=== PATIENT | female | born 1955 | race Caucasian/White ===

== ENCOUNTER 2018-10-20 14:35 | Emergency (ER) | payer OTHER ==
[2018-10-20 14:42] VITALS: BP 109/66; PULSE 58; TEMP 98.7; BMI 30.4
[2018-10-20] MEDS ORDERED: ACETAMINOPHEN 500 MG TABLET (FP) PO ONE (14:42)
--- NOTE | 2018-10-20 14:42 | PDOC ---
Rapid Medical Evaluation Time Seen by Provider: 10/20/18 14:39 Medical Evaluation: Allergies Allergy/AdvReac Type Severity Reaction Status Date / Time No Known Allergies Allergy Verified 01/17/13 09:31 10/20/18 14:39 I have performed a brief in-person evaluation of this patient. The patient presents with a chief complaint of: slipped and fell in the bathtub. Denies dizziness or chest pain prior to fall. Pertinent physical exam findings: Lungs CTAB. TTP over 4th and 5th anterior ribs. No flail chest. I have ordered the following: left rib and chest xray, ice, tylenol The patient will proceed to the ED for further evaluation. 10/20/18 14:41 Discharge Disposition - Diagnosis Rib pain on left side - Referrals - Patient Instructions - Post Discharge Activity
[2018-10-20] MEDS ORDERED: ACETAMINOPHEN 500 MG TABLET (FP) ONE (15:14)
--- NOTE | 2018-10-20 15:14 | PDOC ---
History of Present Illness - General Chief Complaint: Injury Stated Complaint: SLIP AND FALL Time Seen by Provider: 10/20/18 14:39 - History of Present Illness Initial Comments: 10/20/18 15:08 CHIEF COMPLAINT: left rib pain HISTORY OF PRESENT ILLNESS: 63 yo F presents to [facility] with pain to left rib s/p fall. Son reports that the patient slipped and fell in the bath tub and hit her left chest on the side of the tub. Patient and son deny and trauma to head or any other part of the body, deny LOC. Patient c/o of tenderness to left lower ribs and discomfort with inspiration. No recent travel or sick contacts. PAST MEDICAL HISTORY: Denies past medical history FAMILY HISTORY: Denies SOCIAL HISTORY: Denies tobacco, alcohol, illicit drug use. SURGICAL HISTORY: Denies ALLERGIES: No known drug allergies REVIEW OF SYSTEMS General/Constitutional: Denies fever or chills. Denies weakness, weight change. HEENT: Denies change in vision. Denies ear pain or discharge. Denies sore throat. Cardiovascular: Denies chest pain or shortness of breath. Respiratory: Denies cough, wheezing, or hemoptysis. Gastrointestinal: Denies nausea, vomiting, diarrhea or constipation. Denies rectal bleeding. Genitourinary: Denies dysuria, frequency, or change in urination. Musculoskeletal: Pain to left lower rib s/p fall. Denies neck or back pain. Skin and breasts: Denies rash or easy bruising. Neurologic: Denies headache, vertigo, loss of consciousness, or loss of sensation. PHYSICAL EXAM General Appearance: Well-appearing, appropriately dressed. No apparent distress , no intoxication. HEENT: EOMI, PERRLA, normal ENT inspection, normal voice, TMs normal, pharynx normal. No conjunctival pallor. No photophobia, scleral icterus. Neck: Supple. Trachea midline. No tenderness, rigidity, carotid bruit, stridor , lymphadenopathy, or thyromegaly. Respiratory/Chest: Lungs CTAB. No shortness of breath, chest tenderness, respiratory distress, accessory muscle use. No crackles, rales, rhonchi, stridor , wheezing, dullness Cardiovascular: RRR. S1, S2. No JVD, murmur, bradycardia, tachycardia. Vascular Pulses: Dorsalis-Pedis (R): 2+, Dorsalis-Pedis (L): 2+ Gastrointestinal/Abdominal: Normal bowel sounds. Abdomen soft, non-distended. No tenderness or rebound tenderness. No organomegaly, pulsatile mass, guarding , hernia, hepatomegaly, splenomegaly. Lymphatic: No adenopathy, tenderness. Musculoskeletal/Extremities: Tenderness to L chest wall over left lateral 4th and 5th ribs. FROM of all extremities, normal capillary refill. Pelvis Stable. No CVA tenderness. No tenderness to extremities, pedal edema, swelling, erythema or deformity. Integumentary: Appropriate color, dry, warm. No cyanosis, erythema, jaundice or rash Neurologic: charter representative II-XII intact. Fully oriented, alert. Appropriate mood/affect. Motor strength 5/5. No appreciable EOM palsy, facial droop or sensory deficit. 10/20/18 15:19 Past History - Past Medical History Allergies/Adverse Reactions: Allergies Allergy/AdvReac Type Severity Reaction Status Date / Time No Known Allergies Allergy Verified 10/20/18 14:43 Home Medications: Ambulatory Orders Aspirin [ASA -] 325 mg PO DAILY 07/19/17 Atorvastatin Ca [Lipitor] 10 mg PO DAILY 07/19/17 Cholecalciferol (Vitamin D3) [Vitamin D3] 5,000 unit PO DAILY 07/19/17 Duloxetine HCl [Cymbalta -] 60 mg PO DAILY 07/19/17 Ferrous Sulfate [Iron] 325 mg PO DAILY 07/19/17 Nadolol 40 mg PO BID 07/19/17 Nifedipine [Nifedipine ER] 60 mg PO DAILY 07/19/17 Teriflunomide [Aubagio] 14 mg PO DAILY 07/19/17 Vitamin B Complex Vit C No.4 [Super B Complex] 1 tab PO DAILY 07/19/17 Amox-Tr/K Cl [Augmentin - 500Mg Tablet] 1 tab PO BID #14 tab 12/08/17 Anemia: Yes Asthma: No Cancer: No Cardiac Disorders: Yes (PALPITATION?) CVA: No COPD: No CHF: No Dementia: No Diabetes: Yes (DIET CONTROLLED) GI Disorders: Yes (BLOATING, ABD. PAIN) Disorders: No HTN: Yes Hypercholesterolemia: No Liver Disease: No Seizures: No Thyroid Disease: No Other medical history: ms - Surgical History Abdominal Surgery: No Appendectomy: No Cardiac Surgery: (CARDIAC CATHETERIZATION) Cholecystectomy: No Lung Surgery: No Neurologic Surgery: No Orthopedic Surgery: Yes (LOW BACK SURGERY) - Suicide/Smoking/Psychosocial Hx Smoking History: Never smoked Have you smoked in the past 12 months: No Information on smoking cessation initiated: No Hx Alcohol Use: No Drug/Substance Use Hx: No Substance Use Type: None *Physical Exam - Vital Signs Last Vital Signs Temp Pulse Resp BP Pulse Ox 98.7 F 58 L 19 109/66 97 10/20/18 14:40 10/20/18 14:40 10/20/18 14:40 10/20/18 14:40 10/20/18 14:40 Medical Decision Making - Medical Decision Making 10/20/18 15:22 63 yo F presents to [facility] with pain to left rib s/p fall. -rib xray -tylenol x-ray negative for fracture. nsaids, f/u with pcp Advised patient to take medication as prescribed and follow up with PCP within the next week. Advised patient of signs and symptoms for return to ED. Patient verbalized understanding and agrees to plan. *DC/Admit/Observation/Transfer Diagnosis at time of Disposition: Rib pain on left side - Discharge Dispostion Disposition: HOME Condition at time of disposition: Stable Decision to Admit order: No - Referrals Referrals: Roni Wolf MD [Primary Care Provider] - - Patient Instructions Printed Discharge Instructions: DI for Rib Contusion - Post Discharge Activity
== END 2018-10-20 16:29 | disposition home or self-care (01) ==
LOC: JERFT 14:35
DX: S29.8XXA Other specified injuries of thorax, initial encounter (principal); R07.81 Pleurodynia; W18.2XXA Fall in (into) shower or empty bathtub, initial encounter; Y93.E1 Activity, personal bathing and showering; Y92.012 Bathroom of single-family (private) house as the place of occurrence of the external cause; Y99.8 Other external cause status; I10 Essential (primary) hypertension; E11.9 Type 2 diabetes mellitus without complications; D64.9 Anemia, unspecified
CPT/HCPCS: 71046-TC-FY; 71101-TC-LT-FY; 99281-25

== ENCOUNTER 2020-05-30 07:57 | Day surgery (SDC) | payer OTHER ==
[2020-05-30] MEDS ORDERED: FERRIC CARBOXYMALTOSE 750 MG in SODIUM CHLORIDE 250 ML IVPB ONE (11:41)
[2020-05-30 18:28] VITALS: TEMP 98.6
[2020-05-30 18:29] VITALS: BP 131/71; PULSE 53
[2020-06-06] MEDS ORDERED: FERRIC CARBOXYMALTOSE 750 MG in SODIUM CHLORIDE 250 ML IVPB ONE (10:14)
== END 2020-05-30 13:00 | disposition home or self-care (01) ==
LOC: JONCNONCHE 07:57
PROVIDERS: ATTEND Internal Medicine Hematology & Oncology
PROC: 3E033GC Introduction of Other Therapeutic Substance into Peripheral Vein, Percutaneous Approach (ICD-10-PCS; principal; 2020-05-30)
DX: D50.9 Iron deficiency anemia, unspecified (principal)
CPT/HCPCS: 96365; J1439

== ENCOUNTER 2020-06-07 07:14 | Day surgery (SDC) | payer OTHER ==
[~2020-06-07 07:14] MED LIST: FERRIC CARBOXYMALTOSE 750 MG in SODIUM CHLORIDE 250 ML IVPB ONE
[2020-06-07] MEDS ORDERED: FERRIC CARBOXYMALTOSE 750 MG/15 ML VIAL IVPB ONE (11:50)
[2020-06-07] MEDS ORDERED: FERRIC CARBOXYMALTOSE 750 MG in SODIUM CHLORIDE 250 ML IVPB ONE (12:00)
[2020-06-07 15:37] VITALS: PULSE 52; TEMP 98.7
[2020-06-07 15:39] VITALS: BP 119/60
== END 2020-06-07 14:44 | disposition home or self-care (01) ==
LOC: JONCNONCHE 07:14
PROVIDERS: ATTEND Internal Medicine Hematology & Oncology
PROC: 3E033GC Introduction of Other Therapeutic Substance into Peripheral Vein, Percutaneous Approach (ICD-10-PCS; principal; 2020-06-07)
DX: D50.9 Iron deficiency anemia, unspecified (principal)
CPT/HCPCS: 96365; J1439

== ENCOUNTER 2020-12-07 21:14 | Inpatient (IN) | payer OTHER ==
[2020-12-07] MEDS ORDERED: FAMOTIDINE 20 MG/50 ML IVPB 20 MG/50 ML MG IVPB ONE ×2 (21:52→21:59)
[2020-12-07] MEDS ORDERED: ONDANSETRON 4 MG/2 ML VIAL IVPUSH ONE (21:52)
[2020-12-07] MEDS ORDERED: LIDOCAINE VISCOUS 2% ORAL/TOP 15 ML UNIT-DOSE CUP MM ONE (21:53)
[2020-12-07] MEDS ORDERED: MAG HYDROX/AL HYDROX/SIMETH -MYLANTA- ORAL SUSPENSION PO ONE (21:53)
[2020-12-07] MEDS ORDERED: ACETAMINOPHEN 1000 MG/100 ML VIAL IVPB ONE (21:57)
[2020-12-07] MEDS ORDERED: LIDOCAINE VISCOUS 2% ORAL/TOP 15 ML UNIT-DOSE CUP ONE (21:58)
[2020-12-07] MEDS ORDERED: ONDANSETRON 4 MG/2 ML VIAL ONE (21:58)
[2020-12-07] MEDS ORDERED: MAG HYDROX/AL HYDROX/SIMETH 30 ML UNIT-DOSE CUP ONE (21:58)
[2020-12-07] MEDS ORDERED: ACETAMINOPHEN INJECTION 100 ML IVPB ONE (22:48)
[2020-12-07 22:50] LABS: BASO % 0.8 % (0-2.0); EOS % 1.8 % (0-4.5); HEMATOCRIT 33.2 % (32.4-45.2); HEMOGLOBIN 11.1 GM/dL (10.7-15.3); LYMPH % 23.4 % (8-40); MCH 22.1 pg (25.7-33.7); MCHC 33.6 g/dl (32.0-36.0); MEAN CELL VOLUME 65.8 fl (80-96); MEAN PLT VOLUME 8.9 fl (7.5-11.1); PLATELET COUNT 290 10^3/uL (134-434); RBC 5.04 M/mm3 (3.60-5.2); RDW 14.7 % (11.6-15.6); WHITE BLOOD COUNT 8.4 K/mm3 (4.0-10.0)
[2020-12-07 22:58] LABS: INR 1.03 (0.83-1.09); PROTHROMBIN TIME (PATIENT) 11.5 SEC (9.7-13.0)
[2020-12-07 23:01] LABS: ACTIVATED PTT 28.6 SECONDS (25.2-36.5)
[2020-12-07 23:23] LABS: CHLORIDE 79 mmol/L (98-107)
[2020-12-07 23:25] LABS: ALBUMIN 3.9 g/dl (3.4-5.0); BLOOD UREA NITROGEN 9.6 mg/dL (7-18); CALCIUM 9.3 mg/dL (8.5-10.1); CO2 29 mmol/L (21-32); LIPASE 371 U/L (73-393)
[2020-12-07 23:26] LABS: GLUCOSE,RANDOM 142 mg/dL (74-106)
[2020-12-07 23:28] LABS: CREATININE 0.9 mg/dL (0.55-1.3); SGOT/AST 27 U/L (15-37); SGPT/ALT 24 U/L (13-61)
[2020-12-07 23:30] LABS: BILIRUBIN,TOTAL 1.2 mg/dL (0.2-1); TOT PROT 7.4 g/dl (6.4-8.2)
[2020-12-07 23:31] LABS: ALK PHOS 71 U/L (45-117)
[2020-12-07 23:56] LABS: ANION GAP 11 MMOL/L (8-16); SODIUM 118 mmol/L (136-145)
[2020-12-08] MEDS ORDERED: POTASSIUM CHLORIDE ORAL LIQUID 20 MEQ/15 ML PO ONE ×2 (00:21→00:34)
[2020-12-08] MEDS ORDERED: SODIUM CHLORIDE 1,000 ML IV SCH ×2 (00:45→03:00)
[2020-12-08 01:18] LABS: EPI CELLS 6 /uL (0-25.1); HYALINE CASTS 0 /uL (0-3.1); PH,URINE 7.5 (5.0-8.0); URINE APPEARANCE CLEAR; URINE BACTERIA 77 /uL (0-1359); URINE BILIRUBIN NEGATIVE (NEGATIVE); URINE COLOR YELLOW; URINE GLUCOSE (UA) NEGATIVE (NEGATIVE); URINE KETONE NEGATIVE (NEGATIVE); URINE LEUK ESTERASE 1+ (NEGATIVE); URINE NITRITE NEGATIVE (NEGATIVE); URINE PROTEIN 2+ (NEGATIVE); URINE RBC 6 /uL (0-23.9); URINE UROBILINOGEN 0.2 mg/dL (0.2-1.0); URINE WBC 10 /uL (0-25.8)
[2020-12-08] MEDS ORDERED: POTASSIUM CHLORIDE ORAL LIQUID 20 MEQ/15 ML ONE (01:30)
[2020-12-08] MEDS ORDERED: KCL 10 MEQ IVPB 10 MEQ/100 ML INFUS.BAG IVPB ONE ×4 (01:30→12:29)
[2020-12-08 01:49] LABS: MAGNESIUM 1.3 mg/dL (1.8-2.4)
[2020-12-08] MEDS: KCL 10 MEQ IVPB 10 MEQ/100 ML INFUS.BAG IVPB SCH ×3 (01:52→06:12)
[2020-12-08 01:53] LABS: PHOSPHOROUS 2.6 mg/dL (2.5-4.9)
[2020-12-08 01:57] LABS: N-TERMINAL BNP 781.4 pg/ml (5-125)
[2020-12-08] MEDS ORDERED: PIPERACILLIN/TAZOB 4.5 GM 4.5 GM in DEXTROSE 5%-WATER 100 ML IVPB ONE (02:52)
[2020-12-08] MEDS ORDERED: MAGNESIUM SULF 50% (8.12 MEQ/2 ML-1 GM VIAL) IVPB ONE (03:40)
[2020-12-08] MEDS ORDERED: MAGNESIUM SULFATE IN WATER 2 GM/50 ML IVPB IVPB ONE (03:41)
[2020-12-08] MEDS ORDERED: PANTOPRAZOLE SODIUM 40 MG VIAL IVPUSH ONE (05:18)
[2020-12-08 06:24] LABS: BLOOD UREA NITROGEN 7.6 mg/dL (7-18); CALCIUM 8.8 mg/dL (8.5-10.1)
[2020-12-08 06:25] LABS: ALBUMIN 3.7 g/dl (3.4-5.0); MAGNESIUM 2.3 mg/dL (1.8-2.4)
[2020-12-08 06:27] LABS: CREATININE 0.9 mg/dL (0.55-1.3)
[2020-12-08 06:29] LABS: TOT PROT 6.9 g/dl (6.4-8.2)
[2020-12-08 07:07] LABS: BASO % 0.9 % (0-2.0); EOS % 0.6 % (0-4.5); HEMATOCRIT 33.7 % (32.4-45.2); HEMOGLOBIN 11.1 GM/dL (10.7-15.3); LYMPH % 27.2 % (8-40); MCH 22.3 pg (25.7-33.7); MEAN CELL VOLUME 67.7 fl (80-96); MEAN PLT VOLUME 9.5 fl (7.5-11.1); MONO % 9.4 % (3.8-10.2); NEUT % 61.9 % (42.8-82.8); PLATELET COUNT 268 10^3/uL (134-434); RBC 4.97 M/mm3 (3.60-5.2); RDW 15.4 % (11.6-15.6); WHITE BLOOD COUNT 5.7 K/mm3 (4.0-10.0)
[2020-12-08] MEDS ORDERED: POTASSIUM CHLORIDE TABS 20 MEQ TABLET.ER (FP) PO ONE ×2 (07:57→08:13)
[2020-12-08] MEDS ORDERED: FAMOTIDINE 20 MG/50 ML IVPB 20 MG/50 ML MG IVPB ONE (09:49)
[2020-12-08] MEDS: FAMOTIDINE 20 MG/50 ML IVPB 20 MG/50 ML MG IVPB SCH ×2 (10:01→21:58)
[2020-12-08] MEDS: DEXTROSE 5%-WATER - 1,000 ML IV SCH (12:45)
[2020-12-08] MEDS: traMADol HCL 50 MG TABLET PO SCH ×2 (14:59→21:53)
[2020-12-08 16:50] LABS: CHLORIDE 95 mmol/L (98-107); SODIUM 130 mmol/L (136-145)
[2020-12-08 16:51] LABS: CALCIUM 9.6 mg/dL (8.5-10.1)
[2020-12-08 16:52] LABS: ANION GAP 5 MMOL/L (8-16); BLOOD UREA NITROGEN 9.6 mg/dL (7-18); CO2 30 mmol/L (21-32); GLUCOSE,RANDOM 122 mg/dL (74-106)
[2020-12-08 16:55] LABS: CREATININE 1.2 mg/dL (0.55-1.3)
[2020-12-08] MEDS: ATORVASTATIN CA 10 MG TABLET (FP) PO SCH (21:53)
[2020-12-08] MEDS: AMITRIPTYLINE HCL 25 MG TABLET PO SCH (21:53)
[2020-12-08] MEDS ORDERED: NADOLOL 40 MG TABLET (FP) PO SCH (22:00)
[2020-12-09] MEDS: traMADol HCL 50 MG TABLET PO SCH ×3 (06:42→21:32)
[2020-12-09 07:17] LABS: BASO % 1.5 % (0-2.0); EOS % 1.6 % (0-4.5); HEMATOCRIT 35.5 % (32.4-45.2); HEMOGLOBIN 11.3 GM/dL (10.7-15.3); LYMPH % 33.8 % (8-40); MCH 21.6 pg (25.7-33.7); MCHC 31.9 g/dl (32.0-36.0); MEAN CELL VOLUME 67.9 fl (80-96); MEAN PLT VOLUME 10.1 fl (7.5-11.1); MONO % 11.5 % (3.8-10.2); NEUT % 51.6 % (42.8-82.8); PLATELET COUNT 266 10^3/uL (134-434); RBC 5.23 M/mm3 (3.60-5.2); RDW 15.3 % (11.6-15.6); WHITE BLOOD COUNT 6.3 K/mm3 (4.0-10.0)
[2020-12-09 07:20] LABS: CALCIUM 9.5 mg/dL (8.5-10.1)
[2020-12-09 07:21] LABS: ALBUMIN 3.4 g/dl (3.4-5.0); BLOOD UREA NITROGEN 9.8 mg/dL (7-18); MAGNESIUM 1.8 mg/dL (1.8-2.4)
[2020-12-09 07:26] LABS: BILIRUBIN,TOTAL 0.9 mg/dL (0.2-1); TOT PROT 6.5 g/dl (6.4-8.2)
[2020-12-09] MEDS ORDERED: POTASSIUM CHLORIDE ORAL LIQUID 20 MEQ/15 ML PO ONE (09:00)
[2020-12-09] MEDS ORDERED: PT OWN MED DRAWER 7, Y5N ONE ×3 (09:45→21:31)
[2020-12-09] MEDS ORDERED: HYDROCHLOROTHIAZIDE 12.5 MG CAPSULE (FP) PO SCH (10:00)
[2020-12-09] MEDS ORDERED: PATIENT'S OWN MEDICATION (NON-FORMULARY) (Telmisartan/Hydrochlorothiazid [Telmisartan-Hctz PO SCH (10:00)
[2020-12-09] MEDS: NADOLOL 40 MG TABLET (FP) PO SCH ×2 (10:09→21:32)
[2020-12-09] MEDS: LOSARTAN POTASSIUM 50 MG TABLET PO SCH (10:10)
[2020-12-09] MEDS: amLODIPine BESYLATE 5 MG TABLET (FP) PO SCH (10:10)
[2020-12-09] MEDS: FAMOTIDINE 20 MG/50 ML IVPB 20 MG/50 ML MG IVPB SCH (10:17)
[2020-12-09] MEDS: DEXTROSE 5%-WATER - 1,000 ML IV SCH (13:45)
[2020-12-09] MEDS: TERIFLUNOMIDE 7 MG PO SCH (15:13)
[2020-12-09 20:48] VITALS: BMI 26.8
[2020-12-09] MEDS: AMITRIPTYLINE HCL 25 MG TABLET PO SCH (21:32)
[2020-12-09] MEDS: ATORVASTATIN CA 10 MG TABLET (FP) PO SCH (21:32)
[2020-12-10] MEDS: traMADol HCL 50 MG TABLET PO SCH ×3 (06:30→21:06)
[2020-12-10 07:05] LABS: EOS % 1.7 % (0-4.5); HEMATOCRIT 38.8 % (32.4-45.2); HEMOGLOBIN 12.5 GM/dL (10.7-15.3); LYMPH % 36.4 % (8-40); MCHC 32.1 g/dl (32.0-36.0); MEAN CELL VOLUME 68.6 fl (80-96); MEAN PLT VOLUME 10.3 fl (7.5-11.1); MONO % 9.5 % (3.8-10.2); NEUT % 50.4 % (42.8-82.8); PLATELET COUNT 306 10^3/uL (134-434); RBC 5.66 M/mm3 (3.60-5.2); RDW 15.6 % (11.6-15.6); WHITE BLOOD COUNT 6.8 K/mm3 (4.0-10.0)
[2020-12-10 07:31] LABS: CALCIUM 9.8 mg/dL (8.5-10.1)
[2020-12-10 07:32] LABS: ALBUMIN 3.5 g/dl (3.4-5.0); BLOOD UREA NITROGEN 12.6 mg/dL (7-18)
[2020-12-10 07:37] LABS: BILIRUBIN,TOTAL 0.9 mg/dL (0.2-1); TOT PROT 6.9 g/dl (6.4-8.2)
[2020-12-10] MEDS ORDERED: NADOLOL 40 MG TABLET (FP) PO SCH (10:00)
[2020-12-10] MEDS: amLODIPine BESYLATE 5 MG TABLET (FP) PO SCH (10:08)
[2020-12-10] MEDS: LOSARTAN POTASSIUM 50 MG TABLET PO SCH (10:09)
[2020-12-10] MEDS: TERIFLUNOMIDE 7 MG PO SCH (10:10)
[2020-12-10] MEDS ORDERED: PT OWN MED DRAWER 7, Y5N ONE (20:45)
[2020-12-10] MEDS: ATORVASTATIN CA 10 MG TABLET (FP) PO SCH (21:06)
[2020-12-10] MEDS: AMITRIPTYLINE HCL 25 MG TABLET PO SCH (21:06)
[2020-12-11] MEDS: traMADol HCL 50 MG TABLET PO SCH ×3 (05:43→21:48)
[2020-12-11 07:16] LABS: BASO % 1.3 % (0-2.0); EOS % 2.3 % (0-4.5); HEMATOCRIT 35.3 % (32.4-45.2); HEMOGLOBIN 11.4 GM/dL (10.7-15.3); LYMPH % 31.1 % (8-40); MCH 22.1 pg (25.7-33.7); MCHC 32.3 g/dl (32.0-36.0); MEAN CELL VOLUME 68.5 fl (80-96); MEAN PLT VOLUME 9.6 fl (7.5-11.1); MONO % 11.3 % (3.8-10.2); PLATELET COUNT 253 10^3/uL (134-434); RBC 5.15 M/mm3 (3.60-5.2); RDW 15.8 % (11.6-15.6); WHITE BLOOD COUNT 6.8 K/mm3 (4.0-10.0)
[2020-12-11 07:45] LABS: ALBUMIN 3.2 g/dl (3.4-5.0); BLOOD UREA NITROGEN 18.7 mg/dL (7-18)
[2020-12-11 07:46] LABS: CALCIUM 9.7 mg/dL (8.5-10.1)
[2020-12-11 07:47] LABS: BILIRUBIN,TOTAL 0.6 mg/dL (0.2-1); TOT PROT 6.4 g/dl (6.4-8.2)
[2020-12-11 07:48] LABS: CREATININE 1.1 mg/dL (0.55-1.3)
[2020-12-11] MEDS ORDERED: REGADENOSON 0.4 MG/5 ML PRE-FILLED SYRINGE IVPUSH ONE ×2 (09:14→10:00)
[2020-12-11] MEDS: amLODIPine BESYLATE 5 MG TABLET (FP) PO SCH (12:00)
[2020-12-11] MEDS: LOSARTAN POTASSIUM 50 MG TABLET PO SCH (12:01)
[2020-12-11] MEDS: TERIFLUNOMIDE 7 MG PO SCH (12:08)
[2020-12-11] MEDS: ATORVASTATIN CA 10 MG TABLET (FP) PO SCH (21:48)
[2020-12-11] MEDS: AMITRIPTYLINE HCL 25 MG TABLET PO SCH (22:36)
[2020-12-12] MEDS: traMADol HCL 50 MG TABLET PO SCH ×3 (05:46→22:38)
[2020-12-12 07:02] LABS: BASO % 1.8 % (0-2.0); EOS % 3.2 % (0-4.5); HEMATOCRIT 33.6 % (32.4-45.2); LYMPH % 28.8 % (8-40); MCH 22.2 pg (25.7-33.7); MCHC 32.8 g/dl (32.0-36.0); MEAN CELL VOLUME 67.8 fl (80-96); MEAN PLT VOLUME 9.3 fl (7.5-11.1); MONO % 10.9 % (3.8-10.2); NEUT % 55.3 % (42.8-82.8); PLATELET COUNT 245 10^3/uL (134-434); RBC 4.96 M/mm3 (3.60-5.2); RDW 15.6 % (11.6-15.6); WHITE BLOOD COUNT 7.3 K/mm3 (4.0-10.0)
[2020-12-12 07:33] LABS: CALCIUM 9.5 mg/dL (8.5-10.1)
[2020-12-12 07:34] LABS: BLOOD UREA NITROGEN 21.1 mg/dL (7-18)
[2020-12-12 07:37] LABS: CREATININE 1.1 mg/dL (0.55-1.3)
[2020-12-12 07:47] LABS: PROTHROMBIN TIME (PATIENT) 11.2 SEC (9.7-13.0)
[2020-12-12] MEDS: LOSARTAN POTASSIUM 50 MG TABLET PO SCH (10:58)
[2020-12-12] MEDS: amLODIPine BESYLATE 5 MG TABLET (FP) PO SCH (10:58)
[2020-12-12] MEDS: TERIFLUNOMIDE 7 MG PO SCH (11:00)
[2020-12-12] MEDS: PANTOPRAZOLE 40 MG TABLET PO SCH (11:03)
[2020-12-12] MEDS: AMITRIPTYLINE HCL 25 MG TABLET PO SCH (22:38)
[2020-12-12] MEDS: ATORVASTATIN CA 10 MG TABLET (FP) PO SCH (22:38)
[2020-12-13 00:20] VITALS: PULSE 57; TEMP 98.1
[2020-12-13] MEDS: traMADol HCL 50 MG TABLET PO SCH (06:19)
[2020-12-13 07:56] VITALS: BP 102/67
[2020-12-13] MEDS: LOSARTAN POTASSIUM 50 MG TABLET PO SCH (09:23)
[2020-12-13] MEDS: amLODIPine BESYLATE 5 MG TABLET (FP) PO SCH (09:23)
[2020-12-13] MEDS: PANTOPRAZOLE 40 MG TABLET PO SCH (09:23)
[2020-12-13] MEDS: TERIFLUNOMIDE 7 MG PO SCH (09:24)
== END 2020-12-13 12:04 | disposition home health service (06) | DRG 641 ==
LOC: JER 21:14 → JERBED 21:53 → J4W 12-08 12:03
PROVIDERS: ADMIT Internal Medicine; ATTEND Family Medicine
PROC: 0DB68ZX Excision of Stomach, Via Natural or Artificial Opening Endoscopic, Diagnostic (ICD-10-PCS; 2020-12-12)
PROC: 0DB98ZX Excision of Duodenum, Via Natural or Artificial Opening Endoscopic, Diagnostic (ICD-10-PCS; principal; 2020-12-12 09:45)
DX: E87.1 Hypo-osmolality and hyponatremia (principal); K80.10 Calculus of gallbladder with chronic cholecystitis without obstruction; G81.94 Hemiplegia, unspecified affecting left nondominant side; K29.90 Gastroduodenitis, unspecified, without bleeding; E78.5 Hyperlipidemia, unspecified; K21.9 Gastro-esophageal reflux disease without esophagitis; I10 Essential (primary) hypertension; G35 Multiple sclerosis; N28.1 Cyst of kidney, acquired; K44.9 Diaphragmatic hernia without obstruction or gangrene; M54.9 Dorsalgia, unspecified; E87.6 Hypokalemia; E83.42 Hypomagnesemia; R10.13 Epigastric pain; F41.9 Anxiety disorder, unspecified; R00.1 Bradycardia, unspecified; R63.0 Anorexia; Z68.26 Body mass index [BMI] 26.0-26.9, adult; R07.81 Pleurodynia; E11.51 Type 2 diabetes mellitus with diabetic peripheral angiopathy without gangrene; I27.20 Pulmonary hypertension, unspecified; M51.16 Intervertebral disc disorders with radiculopathy, lumbar region; M48.061 Spinal stenosis, lumbar region without neurogenic claudication; E66.3 Overweight; R26.89 Other abnormalities of gait and mobility; R13.10 Dysphagia, unspecified
CPT/HCPCS: 36415; 71045-TC-FY; 71275-TC; 74174-TC; 76705-TC; 78452-TC; 80048; 80053; 80061; 81003; 82436; 82533; 82550; 82553; 83036; 83690; 83735; 83880; 83930; 83935; 84100; 84133; 84300; 84443; 84480; 84481; 84484; 85025; 85610; 85730; 86850; 86900; 86901; 87086; 88305-TC; 93005; 93010; 93017; 93306-TC; 93970-TC; 97116-GP; 97162-GP; 99285-25; A9502; C9803; J0131; J2785; U0003; U0005

== ENCOUNTER 2021-10-27 05:32 | Day surgery (SDC) | payer OTHER ==
[2021-10-24 16:17] VITALS: BMI 26.6
[2021-10-27 10:46] VITALS: TEMP 98
[2021-10-27 11:22] VITALS: BP 155/84; PULSE 72; RESP 17
== END 2021-10-27 11:39 | disposition home or self-care (01) ==
LOC: JASU-ENDO 05:32
PROVIDERS: ATTEND Internal Medicine Gastroenterology
PROC: 0DJD8ZZ Inspection of Lower Intestinal Tract, Via Natural or Artificial Opening Endoscopic (ICD-10-PCS; principal; 2021-10-27 09:30)
DX: Z12.11 Encounter for screening for malignant neoplasm of colon (principal); E11.9 Type 2 diabetes mellitus without complications; I10 Essential (primary) hypertension

== ENCOUNTER 2021-10-31 04:59 | Day surgery (SDC) | payer OTHER ==
[2021-10-29 14:43] VITALS: BMI 26.6
[2021-10-31] MEDS ORDERED: TRIAMCINOLONE ACET 40MG/1ML VIAL ONE (07:26)
[2021-10-31] MEDS ORDERED: BUPIVACAINE HCL 50 ML ONE (07:26)
[2021-10-31] MEDS ORDERED: LIDOCAINE HCL/PF 1% SDV 5ML VIAL ONE (07:26)
[2021-10-31] MEDS ORDERED: TRIAMCINOLONE ACET 40MG/1ML VIAL IM ONE (11:40)
[2021-10-31] MEDS ORDERED: BUPIVACAINE HCL/PF 0.5% (5MG/ML) 10 ML VIAL PNB ONE (11:40)
[2021-10-31] MEDS ORDERED: LIDOCAINE HCL 1%, 10 MG/ML (50 mL VIAL) PNB ONE (11:40)
[2021-10-31 13:11] VITALS: BP 145/72; PULSE 82; RESP 20; TEMP 97.9
== END 2021-10-31 12:55 | disposition home or self-care (01) ==
LOC: JASU-SURG 04:59
PROVIDERS: ATTEND Pain Medicine Pain Medicine
PROC: 3E0U3BZ Introduction of Anesthetic Agent into Joints, Percutaneous Approach (ICD-10-PCS; 2021-10-31)
PROC: 3E0U33Z Introduction of Anti-inflammatory into Joints, Percutaneous Approach (ICD-10-PCS; principal; 2021-10-31 11:00)
DX: M53.3 Sacrococcygeal disorders, not elsewhere classified (principal)
CPT/HCPCS: 76000-TC-FY

== ENCOUNTER 2021-12-02 04:36 | Day surgery (SDC) | payer OTHER ==
[2021-12-01 14:07] VITALS: BMI 26.6
[2021-12-02 11:08] VITALS: RESP 20
[2021-12-02] MEDS ORDERED: LIDOCAINE HCL/PF 1% SDV 5ML VIAL ONE (11:13)
[2021-12-02] MEDS ORDERED: DEXAMETHASONE SOD PHOSPHATE 10 MG/1 ML VIAL ONE (11:13)
[2021-12-02] MEDS ORDERED: SODIUM CHLORIDE 0.9% P/F 10 ML VIAL IJ ONE (11:14)
[2021-12-02] MEDS ORDERED: LIDOCAINE HCL 1% PRESERVATIVE FREE - 30ML VIAL IJ ONE (12:49)
[2021-12-02 13:20] VITALS: TEMP 98
[2021-12-02 15:38] VITALS: BP 140/78; PULSE 78
== END 2021-12-02 13:30 | disposition home or self-care (01) ==
LOC: JASU-SURG 04:36
PROVIDERS: ATTEND Pain Medicine Pain Medicine
PROC: 3E0R33Z Introduction of Anti-inflammatory into Spinal Canal, Percutaneous Approach (ICD-10-PCS; 2021-12-02)
PROC: B01BYZZ Fluoroscopy of Spinal Cord using Other Contrast (ICD-10-PCS; 2021-12-02)
PROC: 3E0R3BZ Introduction of Anesthetic Agent into Spinal Canal, Percutaneous Approach (ICD-10-PCS; principal; 2021-12-02 12:30)
DX: M54.16 Radiculopathy, lumbar region (principal)
CPT/HCPCS: 76000-TC-FY; J1100

== ENCOUNTER 2022-01-16 12:50 | Emergency (ER) | payer OTHER ==
[2022-01-16 13:11] VITALS: BP 134/70; PULSE 88; RESP 17; TEMP 99.2; BMI 25.8
== END 2022-01-16 13:21 | disposition home or self-care (01) ==
LOC: JER 12:50
DX: U07.1 COVID-19 (principal)
CPT/HCPCS: 0241U-QW; 99283-25

== ENCOUNTER 2024-09-03 18:12 | Observation (INO) | payer OTHER ==
[2024-09-03 18:23] VITALS: BMI 24.2
[2024-09-03] MEDS ORDERED: METOCLOPRAMIDE HCL INJECTION 10 MG/2 ML VIAL ONE (19:34)
[2024-09-03] MEDS: METOCLOPRAMIDE HCL INJECTION 10 MG/2 ML VIAL IVPB ONE (20:05)
[2024-09-03] MEDS: SODIUM CHLORIDE 0.9% 500 ML INFUS.BAG IV ONE (20:05)
[2024-09-03 20:28] LABS: ABSOLUTE IMMATURE GRANULOCYTES 0.02 x10^3/uL (0.0-0.031); BASOPHILS # 0.08 x10^3/uL (0.01-0.08); EOSINOPHIL % 1.4 % (0.7-5.8); EOSINOPHILS # 0.09 x10^3/uL (0.04-0.36); MCHC 29.8 g/dl (32.2-35.5); MEAN CELL VOLUME 69.9 fl (79.4-94.8); MONOCYTE # 0.73 x10^3/uL (0.24-0.86); MONOCYTE % 11.0 % (4.7-12.5); RDW 17.7 % (12.4-16.4)
[2024-09-03 20:53] LABS: GLUCOSE,RANDOM 85 mg/dL (74-106)
[2024-09-03 20:54] LABS: CO2 27 mmol/L (21-32)
[2024-09-03 20:56] LABS: CREATININE 1.2 mg/dL (0.55-1.3); SGOT/AST 23 U/L (15-37); SGPT/ALT 19 U/L (13-61)
[2024-09-03 20:58] LABS: TOT PROT 6.9 g/dl (6.4-8.2)
[2024-09-03 20:59] LABS: ALK PHOS 108 U/L (45-117)
[2024-09-03 21:01] LABS: N-TERMINAL BNP 769.6 pg/ml (5-125)
[2024-09-03 21:29] LABS: EPI CELLS 1 /uL (0-25.1); HYALINE CASTS 0 /uL (0-3.1); URINE APPEARANCE CLEAR; URINE BACTERIA 24 /uL (0-1359); URINE BILIRUBIN NEGATIVE (NEGATIVE); URINE COLOR YELLOW; URINE GLUCOSE (UA) 1+ (NEGATIVE); URINE KETONE NEGATIVE (NEGATIVE); URINE LEUK ESTERASE TRACE (NEGATIVE); URINE NITRITE NEGATIVE (NEGATIVE); URINE PROTEIN NEGATIVE (NEGATIVE); URINE RBC 7 /uL (0-23.9); URINE UROBILINOGEN 0.2 mg/dL (0.2-1.0); URINE WBC 3 /uL (0-25.8)
[2024-09-03 21:39] LABS: HIV INTERPRETATION NEGATIVE (NEGATIVE)
[2024-09-03 21:40] LABS: HCV DIAGNOSTIC IN-HOUSE W/RFLX NON-REACTIVE (NONREACTIVE)
[2024-09-03] MEDS ORDERED: ACETAMINOPHEN INJECTION 100 ML ONE (21:49)
[2024-09-03] MEDS: ACETAMINOPHEN 1000 MG/100 ML BAG IVPB ONE (21:59)
[2024-09-03 22:03] LABS: ERYTHROCYTE SEDIMENTATION RATE 12 mm/hr (0-30)
[2024-09-03] MEDS ORDERED: LIDOCAINE HCL 1%, 10 MG/ML (20ML VIAL) ONE (22:12)
[2024-09-04] MEDS: DULoxetine HCL 60 MG CAPSULE.DR PO SCH (01:53)
[2024-09-04] MEDS: amLODIPine BESYLATE 5 MG TABLET (FP) PO SCH (01:53)
[2024-09-04] MEDS: ATORVASTATIN CA 10 MG TABLET (FP) PO SCH (01:53)
[2024-09-04] MEDS ORDERED: PATIENT'S OWN MEDICATION (NON-FORMULARY) (Lipase/Protease/Amylase [Zenpep Dr 40,000 Unit C PO SCH (07:15)
[2024-09-04] MEDS ORDERED: FLECAINIDE ACETATE 100 MG TABLET PO ONE (08:00)
[2024-09-04] MEDS ORDERED: LOSARTAN POTASSIUM 50 MG TABLET PO SCH (08:00)
[2024-09-04] MEDS: LOSARTAN POTASSIUM 50 MG TABLET PO SCH (08:46)
[2024-09-04 09:22] LABS: ABSOLUTE IMMATURE GRANULOCYTES 0.02 x10^3/uL (0.0-0.031); BASOPHILS # 0.07 x10^3/uL (0.01-0.08); EOSINOPHIL % 2.0 % (0.7-5.8); EOSINOPHILS # 0.11 x10^3/uL (0.04-0.36); MCHC 30.3 g/dl (32.2-35.5); MEAN CELL VOLUME 69.9 fl (79.4-94.8); MONOCYTE # 0.58 x10^3/uL (0.24-0.86); MONOCYTE % 10.8 % (4.7-12.5); RDW 17.1 % (12.4-16.4)
[2024-09-04 09:36] LABS: CO2 28.0 mmol/L (21-32); GLUCOSE,RANDOM 137.0 mg/dL (74-106)
[2024-09-04 09:39] LABS: CREATININE 1.2 mg/dL (0.55-1.3)
[2024-09-04] MEDS: PANTOPRAZOLE 40 MG TABLET PO SCH (10:23)
[2024-09-04] MEDS: EMPAGLIFLOZIN (JARDIANCE) 25 MG TABLET PO SCH (10:23)
[2024-09-04] MEDS: TORSEMIDE 20 MG TABLET (FP) PO SCH (10:23)
[2024-09-04] MEDS: INSULIN ASPART SLIDING SCALE (NOVOLOG) 1 VIAL SQ SCH (21:32)
[2024-09-04] MEDS: FLECAINIDE ACETATE 100 MG TABLET PO ONE (21:32)
[2024-09-04] MEDS: ATORVASTATIN CA 40 MG TABLET (FP) PO SCH (22:06)
[2024-09-04] MEDS: amLODIPine BESYLATE 2.5 MG TABLET (FP) PO SCH (22:45)
[2024-09-05] MEDS: EMPAGLIFLOZIN (JARDIANCE) 25 MG TABLET PO SCH (06:36)
[2024-09-05] MEDS: MAGNESIUM OXIDE 400 MG TABLET (FP) PO SCH (09:09)
[2024-09-05 17:11] VITALS: RESP 18
[2024-09-05] MEDS: morphine CARPU-JECT 2 MG/1 ML DISP.SYRIN IVPUSH ONE (18:58)
[2024-09-05] MEDS ORDERED: DIVALPROEX NA *ER* EXTEND REL 500 MG TABLET.SA (FP) PO SCH (22:00)
[2024-09-05] MEDS ORDERED: AMITRIPTYLINE HCL 25 MG TABLET PO SCH (22:00)
[2024-09-05] MEDS: AMITRIPTYLINE HCL 10 MG TABLET PO SCH (22:20)
[2024-09-05] MEDS: PRAMIPEXOLE DIHYDROCHLORIDE 0.125 MG TABLET PO SCH (22:20)
[2024-09-06] MEDS: ACETAMINOPHEN 1000 MG/100 ML BAG IVPB ONE (02:05)
[2024-09-06 15:36] VITALS: BP 118/65; PULSE 62; TEMP 97.5
== END 2024-09-06 10:54 | disposition home or self-care (01) ==
LOC: JER 18:12 → JERBED 18:26 → J6S 22:53
PROVIDERS: ADMIT Family Medicine; ATTEND Family Medicine
PROC: 3E0337Z Introduction of Electrolytic and Water Balance Substance into Peripheral Vein, Percutaneous Approach (ICD-10-PCS; principal; 2024-09-03)
PROC: 3E033GC Introduction of Other Therapeutic Substance into Peripheral Vein, Percutaneous Approach (ICD-10-PCS; 2024-09-03)
PROC: 3E033NZ Introduction of Analgesics, Hypnotics, Sedatives into Peripheral Vein, Percutaneous Approach (ICD-10-PCS; 2024-09-03)
DX: R51.9 Headache, unspecified (principal); E11.22 Type 2 diabetes mellitus with diabetic chronic kidney disease; I12.9 Hypertensive chronic kidney disease with stage 1 through stage 4 chronic kidney disease, or unspecified chronic kidney disease; N18.9 Chronic kidney disease, unspecified; G35 Multiple sclerosis; M62.81 Muscle weakness (generalized); E78.5 Hyperlipidemia, unspecified; K21.9 Gastro-esophageal reflux disease without esophagitis; R60.0 Localized edema; I48.91 Unspecified atrial fibrillation; E87.1 Hypo-osmolality and hyponatremia
CPT/HCPCS: 36415; 70450-TC; 70551-TC; 71045-TC-FY; 72125-TC; 80048; 80053; 81003; 82607; 82962; 83735; 83880; 84100; 84484; 85025; 85651; 86140; 86803; 87086; 87389; 93005; 93010; 96374; 96375; 96376; 97116-GP; 97162-GP; 99285-25; G0378